=== PATIENT | female | born 1955 | race Caucasian/White ===

== ENCOUNTER 2016-05-30 07:44 | Emergency (ER) | payer OTHER ==
[~2016-05-30] VITALS: Ht 172.7 cm; Wt 78.0 kg
[~2016-05-30 07:44] MED LIST: COZAAR25 MG; HYDROCHLOROTHIA25 M1; TOPROL XL25 MG PO
[2016-05-30 07:46] VITALS: BP 152/89
--- NOTE | 2016-05-30 07:58 | NUR ---
Patient ambulated to bed 02.
--- NOTE | 2016-05-30 08:01 | NUR ---
Dr. Mijares evaluating patient at bedside.
[2016-05-30] MEDS ORDERED: NACL 0.9% 1,000 ML IV SCH (08:07)
[2016-05-30] MEDS ORDERED: ONDANSETRON 4 MG/2 ML VIAL IVP ONE (08:10)
[2016-05-30] MEDS ORDERED: KETOROLAC 30 MG/ML VIAL IVP ONE (08:10)
--- NOTE | 2016-05-30 08:52 | NUR ---
60/F TO ED WITH C/O ABD PAIN WITH NAUSEA AND DIARRHEA STARTING LAST NIGHT. PT STATES PAIN 9/10. ABD SOUNDS PRESENT X4Q. LUNGS CLEAR BILAT. AAOX4. VSS. NO SIGNS OF DISTRESS. ERMD TO SEE PT.
--- NOTE | 2016-05-30 09:30 | NUR ---
Patient appears to be resting comfortably in bed. Vital Signs within normal limits. Respirations even and unlabored.
[2016-05-30 10:19] VITALS: BP 148/88
--- NOTE | 2016-05-30 10:20 | NUR ---
DPatient discharged with v/s stable. Written and verbal after care instructions given and explained. Patient alert, oriented and verbalized understanding of instructions. Ambulatory with steady gait. All questions addressed prior to discharge. ID band removed. Patient advised to follow up with PMD. Rx of CIPRO AND ZOFRAN given. Patient educated on indication of medication including possible reaction and side effects. Opportunity to ask questions provided and answered.
== END 2016-05-30 10:20 | disposition home or self-care (01) ==
LOC: MED 07:44
DX: N39.0 Urinary tract infection, site not specified (principal); R19.7 Diarrhea, unspecified; E86.0 Dehydration; I10 Essential (primary) hypertension
CPT/HCPCS: 36415; 80053; 81001; 81025; 82150; 82272; 83690; 85025; 87045; 87086; 87177; 87427; 89055; 96361; 96374; 96375; 99284; J1885; J2405; J7030

== ENCOUNTER 2016-12-16 22:48 | Emergency (ER) | payer OTHER ==
[~2016-12-16] VITALS: Ht 175.3 cm; Wt 77.1 kg
[~2016-12-16 22:48] MED LIST changes: -COZAAR25 MG; +HYDR25TA32; -HYDROCHLOROTHIA25 M1; +LOSA25TA14; +METO25TE2 PO; -TOPROL XL25 MG PO
[2016-12-16 22:54] VITALS: BP 143/90
--- NOTE | 2016-12-16 23:00 | NUR ---
AMBULATED TO ER BED 4
--- NOTE | 2016-12-16 23:03 | NUR ---
61Y/F PRESENTS TO ED WITH C/O RASH AND ITCHING AT THE BACK X 3 DAYS. HX. HTN, DENIES ALLERGIES. AAO X4, AMBULATORY WITH STEADY GAIT. RESPIRATIONS ROOM AIR, EVEN AND UNLABORED. SKIN WARM AND DRY, MULTIPLE BRUISES TO BACK AND RASH. NO C/O PAIN, VSS, ER MD MADE AWARE OF PT. STATUS.
--- NOTE | 2016-12-16 23:06 | NUR ---
Patient being evaluated by DR SAPP at bedside.
[2016-12-16] MEDS ORDERED: LORATADINE 10 MG TAB PO ONE (23:10)
[2016-12-16] MEDS ORDERED: FAMOTIDINE 20 MG TAB PO ONE (23:10)
[2016-12-16 23:32] VITALS: BP 135/80
--- NOTE | 2016-12-16 23:32 | NUR ---
Patient discharged with v/s stable. Written and verbal after care instructions given and explained. Patient alert, oriented and verbalized understanding of instructions. Ambulatory with steady gait. All questions addressed prior to discharge. ID band removed. Patient advised to follow up with PMD. Rx of CKARITIN 10 MG, PEPSID 40 MG given. Patient educated on indication of medication including possible reaction and side effects. Opportunity to ask questions provided and answered.
== END 2016-12-16 23:32 | disposition home or self-care (01) ==
LOC: MED 22:48
DX: R21 Rash and other nonspecific skin eruption (principal); I10 Essential (primary) hypertension
CPT/HCPCS: 99283

== ENCOUNTER 2017-02-08 11:26 | Emergency (ER) | payer OTHER ==
[~2017-02-08] VITALS: Ht 175.3 cm; Wt 78.5 kg
--- NOTE | 2017-02-08 11:28 | NUR ---
Patient ambulated to bed 02.
[2017-02-08 11:32] VITALS: BP 150/93
--- NOTE | 2017-02-08 11:35 | NUR ---
61F BIB FAMILY C/O LEFT CHEST PAIN, ACHING, INTERMITTENTLY RADIATES TO BACK, 8/10 X 1030 TODAY WHILE SITTING; PT AA&OX4, PERRLA, BL LUNG SOUNDS CLEAR, RR EVEN/UNLABORED, SKIN IS WARM/DRY/INTACT AT THIS TIME; PT STATES NO N/V/D AT THIS TIME; STEADY GAIT; PT PLACED ON MONITOR, RESTING IN BED WITH HOB ELEVATED AND IN LOWEST POSITION; POSITIONED FOR COMFORT; ER MD MADE AWARE OF STATUS. WILL CONTINUE TO MONITOR.
--- NOTE | 2017-02-08 11:38 | NUR ---
Dr. Terry evaluating patient at bedside.
[2017-02-08] MEDS ORDERED: ASPIRIN 325 MG TAB PO ONE (11:45)
[2017-02-08] MEDS ORDERED: NITROGLYCERIN 0.4 MG TAB SL ONE (11:45)
--- NOTE | 2017-02-08 12:03 | NUR ---
XRAY AT BEDSIDE.
[2017-02-08 12:09] LABS: BASOPHILS # (AUTO) 0.2 K/uL (0.00-0.22); BASOPHILS % (AUTO) 4.8 % (0.0-2.0); EOSINOPHILS # (AUTO) 0.1 K/uL (0-0.4); EOSINOPHILS % (AUTO) 1.4 % (0.0-4.0); HEMATOCRIT 39.9 % (36-48); HEMOGLOBIN 12.7 g/dL (12.0-16.0); LYMPHOCYTES # (AUTO) 0.7 K/uL (2.5-16.5); LYMPHOCYTES % (AUTO) 17.3 % (20.5-51.1); MEAN CORPUSCULAR HEMOGLOBIN 26 pg (27-31); MEAN CORPUSCULAR HGB CONC 32 g/dL (33-37); MEAN CORPUSCULAR VOLUME 82 fL (80-94); MONOCYTES # (AUTO) 0.2 K/uL (0.8-1.0); MONOCYTES % (AUTO) 6.2 % (1.7-9.3); NEUTROPHILS # (AUTO) 2.6 K/uL (1.8-7.7); NEUTROPHILS % (AUTO) 70.3 % (42.2-75.2); PLATELET COUNT (AUTO) 209 K/uL (140-450); RED BLOOD CELL COUNT(AUTO) 4.89 MIL/uL (4.20-5.40); WHITE BLOOD COUNT (AUTO) 3.8 K/uL (4.8-10.8)
[2017-02-08 12:26] LABS: ANION GAP 8.6 (8-16); CARBON DIOXIDE 30.7 mmol/L (21-32); CREATININE 0.7 mg/dL (0.6-1.3); POTASSIUM 3.3 mmol/L (3.5-5.1)
[2017-02-08 12:32] LABS: ALBUMIN 3.8 g/dL (3.4-5.0); PROTHROMBIN TIME 11.7 secs (10.8-13.4); TOTAL BILIRUBIN 0.5 mg/dL (0.0-1.0)
[2017-02-08] MEDS ORDERED: ONDANSETRON 4 MG/2 ML VIAL IVP ONE (12:35)
[2017-02-08] MEDS ORDERED: MORPHINE SULFATE 4 MG/ML SYR IVP ONE (12:35)
[2017-02-08 12:40] LABS: CREATINE KINASE MB 0.2 ng/mL (0-3.6)
--- NOTE | 2017-02-08 13:28 | NUR ---
LAB at bedside.
--- NOTE | 2017-02-08 13:59 | NUR ---
PT APPEARS TO BE RESTING COMFORTABLY IN BED; RR EVEN/UNLABORED; VSS; POSITIONED FOR COMFORT; WILL CONTINUE TO MONITOR.
--- NOTE | 2017-02-08 14:32 | NUR ---
IV removed, catheter intact and site benign. Applied folded 4x4 gauze and tape to stop bleeding. PT TOLERATED PROCEDURE WELL.
[2017-02-08 14:34] VITALS: BP 126/70
--- NOTE | 2017-02-08 14:34 | NUR ---
Patient discharged with v/s stable. Written and verbal after care instructions given and explained. Patient alert, oriented and verbalized understanding of instructions. Ambulatory with steady gait. All questions addressed prior to discharge. ID band removed. Patient advised to follow up with PMD. Rx of ASPIRIN 325MG given. Patient educated on indication of medication including possible reaction and side effects. Opportunity to ask questions provided and answered.
== END 2017-02-08 14:34 | disposition home or self-care (01) ==
LOC: MED 11:26
DX: R07.9 Chest pain, unspecified (principal); R05 Cough; I10 Essential (primary) hypertension; Z90.710 Acquired absence of both cervix and uterus
CPT/HCPCS: 36415; 71010; 80053; 82550; 82553; 83690; 84484; 85025; 85379; 85610; 85730; 93005; 96374; 96375; 99285; J2270; J2405; Q0092

== ENCOUNTER 2017-02-09 14:36 | Emergency (ER) | payer OTHER ==
[~2017-02-09] VITALS: Ht 175.3 cm; Wt 79.4 kg
[2017-02-09 14:39] VITALS: BP 140/87
--- NOTE | 2017-02-09 15:44 | NUR ---
Patient ambulated to bed 01.
[2017-02-09] MEDS ORDERED: ONDANSETRON 4 MG/2 ML VIAL IVP ONE (16:05)
[2017-02-09] MEDS ORDERED: MORPHINE SULFATE 4 MG/ML SYR IVP ONE (16:05)
[2017-02-09] MEDS ORDERED: KETOROLAC 30 MG/ML VIAL IVP ONE (16:05)
[2017-02-09] MEDS ORDERED: ASPIRIN 325 MG TAB PO ONE ×2 (16:05→17:05)
--- NOTE | 2017-02-09 16:10 | NUR ---
61/F PT PRESENTS TO ER W/C/O CHEST PAIN x 1100 TODAY. PT STATES SHE WAS SEEN IN ER YESTERDAY FOR SAME S/SX, W/NO RELIEF. PAIN 8/10 ACHING RADIATING TO THE BACK. PT STATES SHE HAS HX HTN. AAOx4, PERRLA, BREATHING EVEN AND UNLABORED. ERMD NOTIFIED OF PATIENT STATUS.
[2017-02-09 16:27] LABS: BASOPHILS # (AUTO) 0.1 K/uL (0.00-0.22); BASOPHILS % (AUTO) 1.4 % (0.0-2.0); EOSINOPHILS # (AUTO) 0.1 K/uL (0-0.4); EOSINOPHILS % (AUTO) 3.1 % (0.0-4.0); HEMATOCRIT 38.8 % (36-48); HEMOGLOBIN 12.3 g/dL (12.0-16.0); LYMPHOCYTES # (AUTO) 1.1 K/uL (2.5-16.5); LYMPHOCYTES % (AUTO) 28.9 % (20.5-51.1); MEAN CORPUSCULAR HEMOGLOBIN 26 pg (27-31); MEAN CORPUSCULAR HGB CONC 32 g/dL (33-37); MEAN CORPUSCULAR VOLUME 82 fL (80-94); MONOCYTES # (AUTO) 0.3 K/uL (0.8-1.0); MONOCYTES % (AUTO) 7.7 % (1.7-9.3); NEUTROPHILS # (AUTO) 2.2 K/uL (1.8-7.7); NEUTROPHILS % (AUTO) 58.9 % (42.2-75.2); PLATELET COUNT (AUTO) 210 K/uL (140-450); RED BLOOD CELL COUNT(AUTO) 4.74 MIL/uL (4.20-5.40); RED CELL DISTRIBUTION WIDTH 12.9 % (11.6-13.7); WHITE BLOOD COUNT (AUTO) 3.8 K/uL (4.8-10.8)
[2017-02-09 16:46] LABS: PROTHROMBIN TIME 11.1 secs (10.8-13.4)
[2017-02-09 16:48] LABS: ALBUMIN 3.5 g/dL (3.4-5.0); ANION GAP 7.5 (8-16); CARBON DIOXIDE 32.5 mmol/L (21-32); CREATININE 0.8 mg/dL (0.6-1.3); TOTAL BILIRUBIN 0.3 mg/dL (0.0-1.0)
--- NOTE | 2017-02-09 16:56 | NUR ---
Patient being evaluated by physician at bedside.
[2017-02-09] MEDS ORDERED: traMADol 50 MG TAB PO ONE (17:05)
[2017-02-09 17:16] LABS: D-DIMER < 100 ng/ml (0-400)
--- NOTE | 2017-02-09 17:48 | NUR ---
Patient discharged with v/s stable. Written and verbal after care instructions given and explained. Patient alert, oriented and verbalized understanding of instructions. Ambulatory with steady gait. All questions addressed prior to discharge. ID band removed. Patient advised to follow up with PMD. Rx of TRAMADOL 50MG TABLET given. Patient educated on indication of medication including possible reaction and side effects. Opportunity to ask questions provided and answered.
[2017-02-09 17:49] VITALS: BP 137/76
== END 2017-02-09 17:48 | disposition home or self-care (01) ==
LOC: MED 14:36
DX: R07.89 Other chest pain (principal); I10 Essential (primary) hypertension; Z79.899 Other long term (current) drug therapy; Z90.710 Acquired absence of both cervix and uterus
CPT/HCPCS: 36415; 80053; 83880; 84484; 85025; 85379; 85610; 85730; 93005; 96374; 99285; J1885; J2270; J2405

== ENCOUNTER 2017-03-24 01:40 | Emergency (ER) | payer OTHER ==
[~2017-03-24] VITALS: Ht 175.3 cm; Wt 80.7 kg
[2017-03-24 01:44] VITALS: BP 161/80
--- NOTE | 2017-03-24 01:59 | NUR ---
PT TAKEN TO BED 12
--- NOTE | 2017-03-24 02:15 | NUR ---
PATIENT IS A 61 Y/O FEMALE WHO PRESENTS TO THE ED C/O ABD PAIN. PT STATES, "MY STOMACH HAS BEEN HURTING FOR ABOUT 1 DAY NOW." PT REPORTS 7/10 SHARP ABD PAINT THAT DOES NOT RADIATE. PT DENIES CP, SOB, N/V/D. PT AAOX4, RR EVEN/UNLABORED. PT REPOSITIONED FOR COMFORT, BED IN LOWEST POSITION. ER MD DR. GARDNER NOTIFIED. WILL CONTINUE TO MONITOR.
[2017-03-24] MEDS ORDERED: KETOROLAC 30 MG/ML VIAL IVP ONE (02:25)
[2017-03-24] MEDS ORDERED: NACL 0.9% 1,000 ML IV ONE (02:25)
[2017-03-24] MEDS ORDERED: ONDANSETRON 4 MG/2 ML VIAL IVP ONE (02:25)
[2017-03-24 02:39] LABS: BASOPHILS % (AUTO) 0.6 % (0.0-2.0); EOSINOPHILS % (AUTO) 0.8 % (0.0-4.0); HEMATOCRIT 41.5 % (36-48); HEMOGLOBIN 13.6 g/dL (12.0-16.0); LYMPHOCYTES # (AUTO) 0.5 K/uL (2.5-16.5); LYMPHOCYTES % (AUTO) 11.9 % (20.5-51.1); MEAN CORPUSCULAR HEMOGLOBIN 26 pg (27-31); MEAN CORPUSCULAR HGB CONC 33 g/dL (33-37); MEAN CORPUSCULAR VOLUME 81 fL (80-94); MONOCYTES # (AUTO) 0.1 K/uL (0.8-1.0); MONOCYTES % (AUTO) 2.9 % (1.7-9.3); NEUTROPHILS # (AUTO) 3.7 K/uL (1.8-7.7); NEUTROPHILS % (AUTO) 83.8 % (42.2-75.2); PLATELET COUNT (AUTO) 212 K/uL (140-450); RED BLOOD CELL COUNT(AUTO) 5.16 MIL/uL (4.20-5.40); RED CELL DISTRIBUTION WIDTH 12.3 % (11.6-13.7); WHITE BLOOD COUNT (AUTO) 4.3 K/uL (4.8-10.8)
[2017-03-24 02:49] LABS: ANION GAP 12.3 (8-16); CARBON DIOXIDE 31.2 mmol/L (21-32); CREATININE 0.9 mg/dL (0.6-1.3); POTASSIUM 3.5 mmol/L (3.5-5.1)
[2017-03-24 02:55] LABS: ALBUMIN 4.2 g/dL (3.4-5.0); TOTAL BILIRUBIN 0.9 mg/dL (0.0-1.0)
--- NOTE | 2017-03-24 03:45 | NUR ---
Note david in ED - 03/24/17 at 0452 by MEDDCV UNABLE TO START IV ON PT. ER AND STICK FEEDER MADE AWARE.
[2017-03-24 04:00] VITALS: BP 152/82
--- NOTE | 2017-03-24 04:00 | NUR ---
Patient discharged with v/s stable. Written and verbal after care instructions given and explained. Patient alert, oriented and verbalized understanding of instructions. Ambulatory with steady gait. All questions addressed prior to discharge. ID band removed. Patient advised to follow up with PMD. Rx of ZOFRAN AND TRAMADOL given. Patient educated on indication of medication including possible reaction and side effects. Opportunity to ask questions provided and answered.
== END 2017-03-24 04:00 | disposition home or self-care (01) ==
LOC: MED 01:40
DX: K52.89 Other specified noninfective gastroenteritis and colitis (principal); I10 Essential (primary) hypertension; Z79.899 Other long term (current) drug therapy
CPT/HCPCS: 36415; 80053; 81002; 81025; 85025; 87804; 96361; 96374; 96375; 99284; J1885; J2405; J7030

== ENCOUNTER 2017-06-02 11:17 | Emergency (ER) | payer OTHER ==
[~2017-06-02] VITALS: Ht 172.7 cm; Wt 80.5 kg
[2017-06-02 11:24] VITALS: BP 157/103
--- NOTE | 2017-06-02 11:30 | NUR ---
PATIENT PRESENTS TO ED WITH C/O NON-PRODUCTIVE COUGH X 4 DAYS, SCRATCHY THROAT, LUMP ON HER THROAT. HX; HTN, RX; LASARTAN . PATIENT STATES PAIN OF 8/10 AT THIS TIME; ELEVATED BP NOTED; PATIENT POSITIONED FOR COMFORT; HOB ELEVATED; BEDRAILS UP X2; BED DOWN. ER MD MADE AWARE OF PT STATUS.
--- NOTE | 2017-06-02 11:46 | NUR ---
Patient being evaluated by physician at bedside.
[2017-06-02 12:00] VITALS: BP 157/103
--- NOTE | 2017-06-02 12:00 | NUR ---
Patient discharged with v/s stable. Written and verbal after care instructions given and explained. Patient alert, oriented and verbalized understanding of instructions. Ambulatory with steady gait. All questions addressed prior to discharge. ID band removed. Patient advised to follow up with PMD. Rx of PREDNISONE, MOTRIN given. Patient educated on indication of medication including possible reaction and side effects. Opportunity to ask questions provided and answered.
== END 2017-06-02 12:00 | disposition home or self-care (01) ==
LOC: MED 11:17
DX: J02.9 Acute pharyngitis, unspecified (principal); R05 Cough; I10 Essential (primary) hypertension; Z79.899 Other long term (current) drug therapy
CPT/HCPCS: 99283

== ENCOUNTER 2017-11-20 14:47 | Emergency (ER) | payer OTHER ==
[~2017-11-20] VITALS: Ht 170.2 cm; Wt 77.1 kg
[2017-11-20 15:01] VITALS: BP 162/82
--- NOTE | 2017-11-20 15:01 | NUR ---
PT AMBULATED TO BED 5 FOR TIRAGE
--- NOTE | 2017-11-20 15:04 | NUR ---
REPORT TO ELTON PRADO
--- NOTE | 2017-11-20 15:05 | NUR ---
61/F BIB SELF C/O LEFT EYELID AREA PAIN & TIGHT SINCE WEDS WORSENING TODAY. 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 PT STATES NO VISION CHANGES, EYE IS PERRLA, NO SIGNS OF INJURY OR ABRASION. DENIES N/V/D. AAOX4 WITH EVEN AND STEADY GAIT; LUNGS CLEAR BL; HR EVEN AND REGULAR; PT DENIES ANY FEVER, CP, SOB, OR COUGH AT THIS TIME; PATIENT STATES PAIN OF 6/10 AT THIS TIME.PATIENT POSITIONED FOR COMFORT; HOB ELEVATED; BEDRAILS UP X2; BED DOWN. ER MD MADE AWARE OF PT STATUS.
[2017-11-20 15:53] VITALS: BP 162/82
--- NOTE | 2017-11-20 15:54 | NUR ---
Patient discharged with v/s stable. Written and verbal after care instructions given and explained. Patient alert, oriented and verbalized understanding of instructions. Ambulatory with steady gait. All questions addressed prior to discharge. ID band removed. Patient advised to follow up with PMD. Rx of NEOSPORIN OINTMENT given. Patient educated on indication of medication including possible reaction and side effects. Opportunity to ask questions provided and answered.
== END 2017-11-20 15:54 | disposition home or self-care (01) ==
LOC: MED 14:47
DX: H05.012 Cellulitis of left orbit (principal); I10 Essential (primary) hypertension; Z88.8 Allergy status to other drugs, medicaments and biological substances; Z79.899 Other long term (current) drug therapy
CPT/HCPCS: 99282

== ENCOUNTER 2018-05-16 09:02 | Emergency (ER) | payer OTHER ==
[~2018-05-16] VITALS: Ht 170.2 cm; Wt 78.0 kg
[2018-05-16 09:10] VITALS: BP 155/90
--- NOTE | 2018-05-16 09:10 | NUR ---
PT AMBULATED TO BED 12, REPORT TO SARKIS PRADO
--- NOTE | 2018-05-16 09:13 | NUR ---
62 F PT BIB SELF C/O PRODUCTIVE COUGH YELLOW/GREEN MUCUS SINCE FRIDAY. STATES SHE'S TRIED PSEUDOPHED-BROMEN COUGH SYRUP WITH NO RELIEF. ADMITS DIARRHEA STARTED LAST NIGHT, DENIES N/V. DENIES FEVER. ALSO C/O 9/10 ACHING UMBILICAL ABDOMINAL PAIN. ABDOMEN ROUND AND SOFT, BOWEL SOUNDS ACTIVE X4. BED IS DOWN, LOCKED, BED RAIL X 1, PT IN GOWN, ERMD NOTIFIED OF PATIENT STATUS PMH- CHRONIC MIGRAINES, HTN
--- NOTE | 2018-05-16 09:18 | NUR ---
FLU SWAB AND URINE COLLECTED
--- NOTE | 2018-05-16 09:31 | NUR ---
DR DANIEL AT BEDSIDE
[2018-05-16] MEDS ORDERED: PROMETHAZINE 25 MG/ML VIAL IM ONE (09:35)
[2018-05-16] MEDS ORDERED: cefTRIAXone 1,000 MG in LIDOCAINE 1% ***ER ONLY *** 2.1 ML IM ONE (09:35)
[2018-05-16] MEDS ORDERED: ALBUTEROL SULFATE/IPRATROPIU 3 ML SOL IH ONE (09:35)
[2018-05-16] MEDS ORDERED: cefTRIAXone 1,000 MG VIAL ONE (09:47)
[2018-05-16] MEDS ORDERED: LIDOCAINE MPF 1% 5mL VIAL ONE (09:48)
--- NOTE | 2018-05-16 09:48 | NUR ---
RT AT BEDSIDE
--- NOTE | 2018-05-16 09:57 | NUR ---
RECEIVED PATIENT QUIETLY RESTING IN ED BED 12 ON ROOM AIR, PULSE OX SAT 100%. NO SIGNS OF DISTRESS. ORDERED BREATHING TREATMENT ADMINISTERED. TOLERATED TX WELL, NO ADVERSE SIDE EFFECTS. WILL CONTINUE TO MONITOR.
[2018-05-16 11:16] VITALS: BP 142/87
--- NOTE | 2018-05-16 11:16 | NUR ---
Patient discharged with v/s stable. Written and verbal after care instructions given and explained. Patient alert, oriented and verbalized understanding of instructions. Ambulatory with steady gait. All questions addressed prior to discharge. ID band removed. Patient advised to follow up with PMD. Rx of PREDNISONE, ALBUTEROL, PROMETHAZINE, AZITHROMYCIN given. Patient educated on indication of medication including possible reaction and side effects. Opportunity to ask questions provided and answered.
== END 2018-05-16 11:16 | disposition home or self-care (01) ==
LOC: MED 09:02
DX: J45.909 Unspecified asthma, uncomplicated (principal); G43.909 Migraine, unspecified, not intractable, without status migrainosus; I10 Essential (primary) hypertension; Z79.899 Other long term (current) drug therapy; Z88.8 Allergy status to other drugs, medicaments and biological substances
CPT/HCPCS: 71045; 81002; 81025; 87804; 94640; 96372; 99284; J0696; J2001; J2550; J7620; Q0092

== ENCOUNTER 2019-03-03 18:58 | Emergency (ER) | payer OTHER ==
[~2019-03-03] VITALS: Ht 170.2 cm; Wt 75.7 kg
[~2019-03-03 18:58] MED LIST changes: -LOSA25TA14; +LOSA25TA32
[2019-03-03 19:39] VITALS: BP 168/99
--- NOTE | 2019-03-03 20:36 | NUR ---
PT TO ER CHAIR C
--- NOTE | 2019-03-03 20:38 | NUR ---
PATIENT ASSESSMENT COMPLETED. PATIENT SITTING UP IN CHAIR. AAO. NO C/O ADDRESSED AT THIS TIME.
--- NOTE | 2019-03-03 20:40 | NUR ---
ENEDINA MOTT AT BEDSIDE.
[2019-03-03 21:14] VITALS: BP 168/99
--- NOTE | 2019-03-03 21:14 | NUR ---
Patient discharged with v/s stable. Written and verbal after care instructions given and explained. Patient alert, oriented and verbalized understanding of instructions. Ambulatory with steady gait. All questions addressed prior to discharge. ID band removed. Patient advised to follow up with PMD. Rx of TESSLON PEARLES, IBUPROFEN, FLONASE, MAYE given. Patient educated on indication of medication including possible reaction and side effects. Opportunity to ask questions provided and answered. Addendum: 03/03/19 at 2117 by ANGEL MAYE NOT GIVEN, CLARATIN RX GIVEN
== END 2019-03-03 21:14 | disposition home or self-care (01) ==
LOC: MED 18:58
DX: J30.9 Allergic rhinitis, unspecified (principal); J02.9 Acute pharyngitis, unspecified; I10 Essential (primary) hypertension; Z79.899 Other long term (current) drug therapy; Z88.8 Allergy status to other drugs, medicaments and biological substances
CPT/HCPCS: 99283

== ENCOUNTER 2019-11-13 21:57 | Emergency (ER) | payer OTHER ==
[~2019-11-13] VITALS: Ht 170.2 cm; Wt 83.0 kg
[2019-11-13 22:17] VITALS: BP 189/113
--- NOTE | 2019-11-13 22:25 | NUR ---
63 Y/O FEMALE PRESENTS TO ER WITH C/O LEFT HAND SWELLING X 1 DAY. 6/10 PAIN. PAIN IS LOCALIZED TO THE LEFT HAND W/O RADIATION TO OTHER AREAS OF THE BODY. THE LEFT HAND IS VISUALLY SWOLLEN, AND SLIGHTLY REDDENED AND TTP. CAP REFILL <3 SECS, AND ULNAR AND RADIAL PULSES PALPABLE, AND REGULAR. RIGHT HAND IS SWOLLEN, BUT VISUALLY SMALLER AND SKIN IS NOT REDDENED IN COMPARISON TO LEFT HAND. PT DESCRIBES THE LEFT HAND CRAMPING, ITCHING, NUMB, AND TIGHT. PT IS NOT SURE IF SHE MAY HAVE BEEN BITTEN BY INSECT. PT DENIES N/V/D, SOB, COUGH, CHEST PAIN, HEADACHE, LIGHTHEADEDNESS, DIZZINESS, CHILLS, TRAUMA/INJURY. VSS, R/R EQUAL, AND UNLABORED. SIDE RAIL X1, BED IN LOW POSITION, WILL CONTINUE TO MONITOR. PMH: HTN ALLERGY: PREDNISONE
--- NOTE | 2019-11-13 22:39 | NUR ---
X-Ray at bedside.
--- NOTE | 2019-11-13 23:19 | NUR ---
Dr. England examining patient.
[2019-11-13] MEDS ORDERED: KETOROLAC 60 MG/2 ML VIAL IM ONE (23:25)
[2019-11-13 23:38] VITALS: BP 189/113
--- NOTE | 2019-11-13 23:43 | NUR ---
Patient discharged with v/s stable. Written and verbal after care instructions given and explained. Patient alert, oriented and verbalized understanding of instructions. Ambulatory with steady gait. All questions addressed prior to discharge. ID band removed. Patient advised to follow up with PMD. Rx of motrin; keflex given. Patient educated on indication of medication including possible reaction and side effects. Opportunity to ask questions provided and answered.
== END 2019-11-13 23:43 | disposition home or self-care (01) ==
LOC: MED 21:57
DX: L03.114 Cellulitis of left upper limb (principal); I10 Essential (primary) hypertension; Z79.899 Other long term (current) drug therapy; Z88.8 Allergy status to other drugs, medicaments and biological substances; Z90.710 Acquired absence of both cervix and uterus
CPT/HCPCS: 73130; 96372; 99283; J1885; Q0092

== ENCOUNTER 2020-03-17 01:50 | Emergency (ER) | payer OTHER ==
[~2020-03-17] VITALS: Ht 172.7 cm; Wt 79.4 kg
[2020-03-17 01:53] VITALS: BP 128/80
--- NOTE | 2020-03-17 01:53 | NUR ---
TO TENT AMBULATORY
--- NOTE | 2020-03-17 02:30 | NUR ---
SEEN AND EXAMINED BY ZOË WITH ORDER AND CARRIED OUT
--- NOTE | 2020-03-17 03:30 | NUR ---
RESULT BACK AND NOTED BY ERMD AND FOR D/C
[2020-03-17 04:00] VITALS: BP 128/80
--- NOTE | 2020-03-17 04:00 | NUR ---
Patient discharged with v/s stable. Written and verbal after care instructions given and explained. Patient alert, oriented and verbalized understanding of instructions. Ambulatory with steady gait. All questions addressed prior to discharge. ID band removed. Patient advised to follow up with PMD. Rx of TESSALON, AMOXICILLIN given. Patient educated on indication of medication including possible reaction and side effects. Opportunity to ask questions provided and answered.
== END 2020-03-17 04:00 | disposition home or self-care (01) ==
LOC: MED 01:50
DX: U07.1 COVID-19 (principal); I10 Essential (primary) hypertension; Z79.899 Other long term (current) drug therapy
CPT/HCPCS: 71045; 99283

== ENCOUNTER 2020-06-26 13:57 | Emergency (ER) | payer OTHER ==
[~2020-06-26] VITALS: Ht 170.2 cm; Wt 79.4 kg
[2020-06-26 14:22] VITALS: BP 150/90
[2020-06-26] MEDS ORDERED: ONDANSETRON 4 MG/2 ML VIAL IVP ONE (15:35)
[2020-06-26] MEDS ORDERED: KETOROLAC 30 MG/ML VIAL IVP ONE (15:35)
[2020-06-26] MEDS ORDERED: NACL 0.9% 1,000 ML IV ONE (15:35)
[2020-06-26 16:46] LABS: BASOPHILS % (AUTO) 0.8 % (0.0-2.0); EOSINOPHILS % (AUTO) 1.3 % (0.0-4.0); HEMATOCRIT 38.3 % (36-48); HEMOGLOBIN 12.4 g/dL (12.0-16.0); LYMPHOCYTES # (AUTO) 1.2 K/uL (2.5-16.5); LYMPHOCYTES % (AUTO) 39.5 % (20.5-51.1); MEAN CORPUSCULAR HEMOGLOBIN 27 pg (27-31); MEAN CORPUSCULAR HGB CONC 32 g/dL (33-37); MONOCYTES # (AUTO) 0.3 K/uL (0.8-1.0); MONOCYTES % (AUTO) 8.2 % (1.7-9.3); NEUTROPHILS # (AUTO) 1.5 K/uL (1.8-7.7); NEUTROPHILS % (AUTO) 50.2 % (42.2-75.2); PLATELET COUNT (AUTO) 212 K/uL (140-450); RED BLOOD CELL COUNT(AUTO) 4.67 MIL/uL (4.20-5.40); RED CELL DISTRIBUTION WIDTH 13.4 % (11.6-13.7); WHITE BLOOD COUNT (AUTO) 3.1 K/uL (4.8-10.8)
[2020-06-26] MEDS ORDERED: ACET-8386 PO (16:56)
[2020-06-26] MEDS ORDERED: ONDA8TAB87 PO (16:56)
[2020-06-26] MEDS ORDERED: IBUP-2213 PO (16:56)
[2020-06-26 17:27] VITALS: BP 150/90
== END 2020-06-26 17:27 | disposition home or self-care (01) ==
LOC: MED 13:57
DX: R51.9 Headache, unspecified (principal); R11.0 Nausea; I10 Essential (primary) hypertension; Z79.899 Other long term (current) drug therapy; Z88.8 Allergy status to other drugs, medicaments and biological substances; Z90.710 Acquired absence of both cervix and uterus
CPT/HCPCS: 36415; 70450; 81002; 81025; 85025; 96361; 96374; 96375; 99284; J1885; J2405; J7030

== ENCOUNTER 2020-11-30 19:06 | Emergency (ER) | payer OTHER ==
[~2020-11-30] VITALS: Ht 170.2 cm; Wt 78.5 kg
[~2020-11-30 19:06] MED LIST changes: +ACET-8386 PO; +IBUP-2213 PO; +ONDA8TAB87 PO
[2020-11-30 19:29] VITALS: BP 143/86
--- NOTE | 2020-11-30 19:32 | NUR ---
TO LOBBY A/W BED AMBULATORY
[2020-11-30] MEDS ORDERED: KETOROLAC 15 MG/ML VIAL IM ONE (19:40)
--- NOTE | 2020-11-30 19:56 | NUR ---
PT AMBULATED TO [facility]
--- NOTE | 2020-11-30 20:20 | NUR ---
PT RETURN FROM RAD
[2020-11-30] MEDS ORDERED: FAMO-90 PO (21:13)
[2020-11-30] MEDS ORDERED: IBUP200C97 PO (21:13)
[2020-11-30 21:43] VITALS: BP 143/86
--- NOTE | 2020-11-30 21:58 | NUR ---
Patient discharged with v/s stable. Written and verbal after care instructions given and explained. Patient verbalized understanding. Ambulatory with steady gait. All questions addressed prior to discharge. Advised to follow up with PMD.
== END 2020-11-30 21:43 | disposition home or self-care (01) ==
LOC: MED 19:06
DX: M25.561 Pain in right knee (principal); M43.6 Torticollis
CPT/HCPCS: 73562; 96372; 99283; J1885

== ENCOUNTER 2021-01-30 18:36 | Emergency (ER) | payer OTHER ==
[~2021-01-30] VITALS: Ht 170.2 cm; Wt 78.5 kg
[~2021-01-30 18:36] MED LIST changes: +FAMO-90 PO; +IBUP200C97 PO
[2021-01-30 18:56] VITALS: BP 158/87
[2021-01-30] MEDS ORDERED: IBUP-2218 PO (22:26)
[2021-01-30] MEDS ORDERED: PANT40EC PO (22:26)
[2021-01-30] MEDS ORDERED: KETOROLAC 30 MG/ML VIAL IM ONE (22:30)
[2021-01-30] MEDS ORDERED: PANTOPRAZOLE 40 MG TABEC PO ONE (22:30)
--- NOTE | 2021-01-30 23:00 | NUR ---
Brenda hernandez in ED - 01/30/21 at 2327 by MEDGJ PT SEEN AND EVALUATED BY ERMD. NO NURSING INTERVENTIONS PROVIDED.
--- NOTE | 2021-01-30 23:16 | NUR ---
Patient discharged with v/s stable. Written and verbal after care instructions given and explained. Patient alert, oriented and verbalized understanding of instructions. Ambulatory with steady gait. All questions addressed prior to discharge. ID band removed. Patient advised to follow up with PMD. Rx of MOTRIN AND PROTONIX given. Patient educated on indication of medication including possible reaction and side effects. Opportunity to ask questions provided and answered.
== END 2021-01-30 23:16 | disposition home or self-care (01) ==
LOC: MED 18:36
DX: M25.461 Effusion, right knee (principal); I10 Essential (primary) hypertension; Z79.899 Other long term (current) drug therapy; Z88.8 Allergy status to other drugs, medicaments and biological substances
CPT/HCPCS: 73562; 96372; 99283; J1885

== ENCOUNTER 2021-05-06 03:10 | Emergency (ER) | payer OTHER ==
[~2021-05-06] VITALS: Ht 170.2 cm; Wt 79.4 kg
[~2021-05-06 03:10] MED LIST changes: +IBUP-2218 PO; +PANT40EC PO
[2021-05-06 03:15] VITALS: BP 175/98
--- NOTE | 2021-05-06 03:15 | NUR ---
TO BED AMBULATORY
--- NOTE | 2021-05-06 03:40 | NUR ---
65 YO F BIB SELF WITH C/C OF NONPROD COUGH AND THROAT TIGHTNESS X3-4DAYS. PT REPORTS CHILLS XTODAY. PT DENIES FEVER, N.V.D. DENIES BEING AROUND ANYONE SICK. BACK OF THROAT APPEARS SLIGHTLY RED. HX:HTN RX:LOSARTAN ALLERGIES:PREDNISONE
--- NOTE | 2021-05-06 03:40 | NUR ---
PT TAKEN TO BED 11.
[2021-05-06] MEDS ORDERED: ALUMINUM HYD/MAG/SIMETHICONE 30 ML UDC PO ONE (03:50)
--- NOTE | 2021-05-06 04:01 | NUR ---
swabs collected and taken to lab
--- NOTE | 2021-05-06 04:16 | NUR ---
pt taken to rad.
--- NOTE | 2021-05-06 04:20 | NUR ---
pt back from rad.
[2021-05-06 05:17] VITALS: BP 174/99
== END 2021-05-06 05:17 | disposition home or self-care (01) ==
LOC: MED 03:10
DX: B34.9 Viral infection, unspecified (principal); Z20.822 Contact with and (suspected) exposure to COVID-19; I10 Essential (primary) hypertension
CPT/HCPCS: 36415; 71046; 87804; 99284; U0003

== ENCOUNTER 2021-06-01 08:37 | Emergency (ER) | payer OTHER ==
[~2021-06-01] VITALS: Ht 170.2 cm; Wt 77.6 kg
[2021-06-01 08:57] VITALS: BP 152/84
--- NOTE | 2021-06-01 09:03 | NUR ---
PT AMBULATED TO ER BED 8
--- NOTE | 2021-06-01 09:20 | NUR ---
DR. SCHUMACHER EVALUATING PATIENT AT BEDSIDE.
[2021-06-01] MEDS ORDERED: TOBR5SOL17 OP (09:32)
[2021-06-01] MEDS ORDERED: DIPH25TA53 PO (09:32)
[2021-06-01] MEDS ORDERED: GENT3OIN12 OP (09:51)
--- NOTE | 2021-06-01 09:54 | NUR ---
Patient discharged with v/s stable. Written and verbal after care instructions ABOUT ALLERGIC CONJUNCTIVITIS given and explained. Patient alert, oriented and verbalized understanding of instructions. Ambulatory with steady gait. All questions addressed prior to discharge. ID band removed. Patient advised to follow up with PMD. Rx of BENADRY, GENTAMICIN SULFATE, TOBRAMYCIN given. Patient educated on indication of medication including possible reaction and side effects. Opportunity to ask questions provided and answered.
--- NOTE | 2021-06-01 09:55 | NUR ---
The patient's care was reviewed and supervised by Jacque Worthy RN.
== END 2021-06-01 09:54 | disposition home or self-care (01) ==
LOC: MED 08:37
DX: H10.9 Unspecified conjunctivitis (principal); I10 Essential (primary) hypertension; Z79.899 Other long term (current) drug therapy; Z88.8 Allergy status to other drugs, medicaments and biological substances; Z90.710 Acquired absence of both cervix and uterus
CPT/HCPCS: 99283

== ENCOUNTER 2021-11-21 12:40 | Emergency (ER) | payer OTHER ==
[~2021-11-21] VITALS: Ht 170.2 cm; Wt 78.0 kg
[~2021-11-21 12:40] MED LIST changes: +DIPH25TA53 PO; +GENT3OIN12 OP; +TOBR5SOL17 OP
[2021-11-21 12:48] VITALS: BP 143/91
--- NOTE | 2021-11-21 12:58 | NUR ---
TENT 1.
--- NOTE | 2021-11-21 12:58 | NUR ---
COVID PAZ, FLU SWABS DONE.
--- NOTE | 2021-11-21 13:01 | NUR ---
BIB SELF C/O COUGH, 8/10 SORE THROAT, SUBJECTIVE FEVER, MCKEON , RUNNY NOSE X 6DAYS. PMH:HTN
--- NOTE | 2021-11-21 13:58 | NUR ---
PT AMB TO BED 10.
--- NOTE | 2021-11-21 14:06 | NUR ---
Patient being evaluated by PANTERA NOLAN at bedside.
[2021-11-21] MEDS ORDERED: ONDANSETRON 4 MG ODT PO ONE (14:15)
[2021-11-21] MEDS ORDERED: PROM118S5 PO (14:45)
[2021-11-21] MEDS ORDERED: ONDA-188 SL (14:45)
[2021-11-21] MEDS ORDERED: IMO2 PO (14:45)
[2021-11-21 14:47] VITALS: BP 144/83
== END 2021-11-21 14:51 | disposition home or self-care (01) ==
LOC: MED 12:40
DX: B34.9 Viral infection, unspecified (principal); Z20.822 Contact with and (suspected) exposure to COVID-19; I10 Essential (primary) hypertension; Z90.710 Acquired absence of both cervix and uterus; Z79.899 Other long term (current) drug therapy; Z79.2 Long term (current) use of antibiotics; Z79.1 Long term (current) use of non-steroidal anti-inflammatories (NSAID); Z79.891 Long term (current) use of opiate analgesic; Z88.8 Allergy status to other drugs, medicaments and biological substances
CPT/HCPCS: 81002; 87426; 87804; 99283; Q0162